=== PATIENT | male | born 1950 | race Caucasian/White ===

== ENCOUNTER 2019-08-19 08:12 | Inpatient (IN) ==
[2019-08-19] MEDS: 0.9 % Sodium Chloride 1,000 ML IVC SCH (08:47)
[2019-08-19] MEDS ORDERED: Nitroglycerin 1,000 MCG/10 ML VIAL IV ONE (10:11)
[2019-08-19] MEDS ORDERED: Heparin 1,000 UNITS/500 mL 500 ML ONE (10:11)
[2019-08-19] MEDS ORDERED: *HR* Heparin 10,000 UNIT/10 ML VIAL ONE (10:11)
[2019-08-19] MEDS ORDERED: Iopamidol 125 ML INFUS..BTL ONE (10:11)
[2019-08-19] MEDS ORDERED: 0.9 % Sodium Chloride 1,000 ML ONE (10:11)
[2019-08-19] MEDS ORDERED: *HR* FentaNYL (PF) 100 MCG/2 ML VIAL ONE (10:18)
[2019-08-19] MEDS ORDERED: *HR* Midazolam HCl 2 MG/2 ML VIAL ONE (10:18)
[2019-08-19] MEDS ORDERED: *HR* Heparin 5,000 UNIT/ML VIAL IVP PRN ×2 (15:33)
[2019-08-19] MEDS ORDERED: *HR* Heparin 5,000 UNIT/ML VIAL IVP ONE (15:33)
[2019-08-19] MEDS ORDERED: Naloxone 0.4 MG/ML INJ IVP PRN (15:35)
[2019-08-19] MEDS ORDERED: *HR* Dextrose 50 % in Water (Syg) 50 ML SYRINGE IVP PRN (15:44)
[2019-08-19] MEDS ORDERED: D5% in Water 1,000 ML IVC PRN (15:44)
[2019-08-19] MEDS ORDERED: Dextrose Gel 15 GM/37.5 ML TUBE PO PRN ×2 (15:44)
[2019-08-19] MEDS ORDERED: Nitroglycerin 0.4 MG TAB.SUBL SL PRN (15:47)
[2019-08-19 16:32] LABS: Basophils % 0.6 %; Eosinophils # 0.1 K/mcL (0.0-0.6); Eosinophils % 1.6 %; Hematocrit 36.1 % (37.5-50.1); Hematocrit 36.9 % (37.5-50.1); Hemoglobin 12.2 g/dL (12.9-16.9); Hemoglobin 12.6 g/dL (12.9-16.9); Immature Granulocytes % 0.1 % (0-4); Lymphocytes # 1.5 K/mcL (0.6-4.6); Lymphocytes % 22.8 %; Mean Corpuscular HGB Conc 33.8 g/dL (31.6-35.5); Mean Corpuscular HGB Conc 34.1 g/dL (31.6-35.5); Mean Corpuscular Hemoglobin 29.3 pg (28.0-33.3); Mean Corpuscular Hemoglobin 30.2 pg (28.0-33.3); Mean Corpuscular Volume 86.8 fL (83.0-100.0); Mean Corpuscular Volume 88.5 fL (83.0-100.0); Mean Platelet Volume 10.6 fL (9.4-12.4); Mean Platelet Volume 10.7 fL (9.4-12.4); Monocytes # 0.6 K/mcL (0.0-1.3); Monocytes % 8.7 %; Neutrophils # 4.5 K/mcL (1.6-8.9); Platelet Count 164 K/mcL (140-400); Platelet Count 168 K/mcL (140-400); Red Blood Count 4.16 M/mcL (4.19-5.50); Red Blood Count 4.17 M/mcL (4.19-5.50); Red Cell Distribution Width 12.9 % (11.5-14.5); Segmented Neutrophils % 66.2 %; White Blood Count 6.6 K/mcL (4.3-11.1); White Blood Count 6.8 K/mcL (4.3-11.1)
[2019-08-19 16:47] LABS: INR 1.1
[2019-08-19] MEDS: Insulin LISPRO 300 UNITS/3 ML VIAL SQ SCH (16:52)
[2019-08-19 16:53] LABS: Alanine Aminotransferase 28 Units/L (7-52); Albumin 3.9 g/dL (3.5-5.7); Albumin/Globulin Ratio 1.8 (1.1-2.2); Alkaline Phosphatase 64 Units/L (34-104); Aspartate Amino Transferase 21 Units/L (13-39); BUN/Creatinine Ratio 16 (6-26); Bilirubin,Total 0.4 mg/dL (0.3-1.0); Blood Urea Nitrogen 20 mg/dL (8-23); Carbon Dioxide 30 mEq/L (23-29); Chloride 107 mEq/L (98-107); Globulin 2.2 g/dL (2.4-3.5); Glucose 336 mg/dL (70-105); Osmolality,Calculated 298 (280-300); Sodium 136 mEq/L (136-145); Total Protein 6.1 g/dL (6.4-8.9); eGFR For African Americans > 60 (> 60); eGFR For Non-African Americans 58 (> 60)
[2019-08-19 16:54] LABS: Troponin I < 0.03 ng/mL (< 0.04)
[2019-08-19] MEDS: Heparin 25,000 UNIT/250 ML D5W 25,000 UNIT/250 ML IV.SOLN IVC SCH (16:54)
[2019-08-19] MEDS: Insulin DETEMIR 100 UNIT/ML X5UNITS SQ SCH (22:00)
[2019-08-20 04:15] LABS: Basophils # 0.1 K/mcL (0.0-0.2); Basophils % 0.7 %; Eosinophils # 0.2 K/mcL (0.0-0.6); Eosinophils % 2.2 %; Hematocrit 36.3 % (37.5-50.1); Hemoglobin 12.3 g/dL (12.9-16.9); Immature Granulocytes % 0.3 % (0-4); Lymphocytes # 2.2 K/mcL (0.6-4.6); Lymphocytes % 23.6 %; Mean Corpuscular HGB Conc 33.9 g/dL (31.6-35.5); Mean Corpuscular Hemoglobin 29.9 pg (28.0-33.3); Mean Corpuscular Volume 88.1 fL (83.0-100.0); Mean Platelet Volume 10.6 fL (9.4-12.4); Monocytes # 0.9 K/mcL (0.0-1.3); Monocytes % 10.2 %; Neutrophils # 5.8 K/mcL (1.6-8.9); Platelet Count 164 K/mcL (140-400); Red Blood Count 4.12 M/mcL (4.19-5.50); Red Cell Distribution Width 12.8 % (11.5-14.5); White Blood Count 9.2 K/mcL (4.3-11.1)
[2019-08-20 04:33] LABS: BUN/Creatinine Ratio 16 (6-26); Blood Urea Nitrogen 19 mg/dL (8-23); Calcium 9.1 mg/dL (8.6-10.3); Carbon Dioxide 25 mEq/L (23-29); Chloride 107 mEq/L (98-107); Glucose 137 mg/dL (70-105); Osmolality,Calculated 290 (280-300); Potassium 3.8 mEq/L (3.5-5.1); Sodium 138 mEq/L (136-145); eGFR For African Americans > 60 (> 60); eGFR For Non-African Americans > 60 (> 60)
[2019-08-20] MEDS: Insulin LISPRO 300 UNITS/3 ML VIAL SQ SCH ×3 (08:20→17:41)
[2019-08-20] MEDS: Aspirin Enteric Coated 81 MG Tablet PO SCH (09:51)
[2019-08-20] MEDS: amLODIPine 5 MG TABLET PO SCH (09:51)
[2019-08-20] MEDS: Metoprolol XL (24 HR) Succ 25 MG TAB.ER.24H PO SCH (09:51)
[2019-08-20 13:47] LABS: Bilirubin,Urine Negative (Negative); Blood,Urine Negative (Negative); Clarity,Urine Clear (Clear); Color,Urine Yellow (Yellow); Glucose,Urine (UA) 250 mg/dL (Normal); Ketones,Urine Negative (Negative); Leukocyte Esterase,Urine Negative (Negative); Nitrite,Urine Negative (Negative); Protein,Urine Negative (Neg-Trace); Specific Gravity,Urine 1.009 (1.010-1.025); Urobilinogen,Urine Normal (Normal)
[2019-08-20] MEDS: Heparin 25,000 UNIT/250 ML D5W 25,000 UNIT/250 ML IV.SOLN IVC SCH (15:05)
[2019-08-20] MEDS: Insulin DETEMIR 100 UNIT/ML X5UNITS SQ SCH (19:39)
[2019-08-21] MEDS: Aspirin Enteric Coated 81 MG Tablet PO SCH (09:03)
[2019-08-21] MEDS: Insulin LISPRO 300 UNITS/3 ML VIAL SQ SCH ×3 (09:03→18:30)
[2019-08-21] MEDS: amLODIPine 5 MG TABLET PO SCH (09:03)
[2019-08-21] MEDS: Metoprolol XL (24 HR) Succ 25 MG TAB.ER.24H PO SCH (09:03)
[2019-08-21] MEDS: Heparin 25,000 UNIT/250 ML D5W 25,000 UNIT/250 ML IV.SOLN IVC SCH (15:20)
[2019-08-21] MEDS: Insulin DETEMIR 100 UNIT/ML X5UNITS SQ SCH (20:54)
[2019-08-22] MEDS: Ondansetron 4 MG/2 ML VIAL IVP PRN (00:33)
[2019-08-22 04:51] LABS: Hematocrit 36.4 % (37.5-50.1); Hemoglobin 12.6 g/dL (12.9-16.9); Mean Corpuscular HGB Conc 34.6 g/dL (31.6-35.5); Mean Corpuscular Hemoglobin 29.6 pg (28.0-33.3); Mean Corpuscular Volume 85.4 fL (83.0-100.0); Mean Platelet Volume 10.7 fL (9.4-12.4); Platelet Count 173 K/mcL (140-400); Red Blood Count 4.26 M/mcL (4.19-5.50); Red Cell Distribution Width 12.9 % (11.5-14.5)
[2019-08-22] MEDS: amLODIPine 5 MG TABLET PO SCH (07:46)
[2019-08-22] MEDS: Aspirin Enteric Coated 81 MG Tablet PO SCH (07:46)
[2019-08-22] MEDS: Insulin DETEMIR 100 UNIT/ML X5UNITS SQ SCH ×2 (07:46→21:28)
[2019-08-22] MEDS: Metoprolol XL (24 HR) Succ 25 MG TAB.ER.24H PO SCH (07:46)
[2019-08-22] MEDS: Insulin LISPRO 300 UNITS/3 ML VIAL SQ SCH ×3 (07:47→16:31)
[2019-08-22] MEDS ORDERED: Chlorhexidine Rinse 15 ML MOUTHWASH MM SCH (09:00)
[2019-08-22 09:53] LABS: INR 1.1; Prothrombin Time 12.3 Seconds (9.4-12.1)
[2019-08-22 10:12] LABS: Estimated Average Glucose 240 mg/dl
[2019-08-22] MEDS: Heparin 25,000 UNIT/250 ML D5W 25,000 UNIT/250 ML IV.SOLN IVC SCH (15:09)
[2019-08-23] MEDS: Aspirin Enteric Coated 81 MG Tablet PO SCH (07:46)
[2019-08-23] MEDS: amLODIPine 5 MG TABLET PO SCH (07:46)
[2019-08-23] MEDS: Insulin DETEMIR 100 UNIT/ML X5UNITS SQ SCH ×2 (07:46→22:00)
[2019-08-23] MEDS: Insulin LISPRO 300 UNITS/3 ML VIAL SQ SCH ×4 (07:47→16:28)
[2019-08-23] MEDS: Metoprolol XL (24 HR) Succ 25 MG TAB.ER.24H PO SCH (07:47)
[2019-08-23] MEDS ORDERED: levoFLOXacin 500 MG TABLET PO SCH (09:00)
[2019-08-23] MEDS: 0.9 % Sodium Chloride 1,000 ML IVC SCH (09:30)
[2019-08-23] MEDS ORDERED: Sennosides/Docusate Sodium TABLET PO PRN (12:28)
[2019-08-23] MEDS ORDERED: Insulin LISPRO 300 UNITS/3 ML VIAL SQ SCH (12:30)
[2019-08-23] MEDS: Heparin 25,000 UNIT/250 ML D5W 25,000 UNIT/250 ML IV.SOLN IVC SCH (16:26)
[2019-08-24] MEDS: Ondansetron 4 MG/2 ML VIAL IVP PRN (04:37)
[2019-08-24] MEDS: Insulin LISPRO 300 UNITS/3 ML VIAL SQ SCH ×6 (08:58→17:51)
[2019-08-24] MEDS: amLODIPine 5 MG TABLET PO SCH (08:59)
[2019-08-24] MEDS: Aspirin Enteric Coated 81 MG Tablet PO SCH (08:59)
[2019-08-24] MEDS: Insulin DETEMIR 100 UNIT/ML X5UNITS SQ SCH ×2 (09:00→21:20)
[2019-08-24] MEDS: Metoprolol XL (24 HR) Succ 25 MG TAB.ER.24H PO SCH (09:00)
[2019-08-24] MEDS: Heparin 25,000 UNIT/250 ML D5W 25,000 UNIT/250 ML IV.SOLN IVC SCH (15:33)
[2019-08-25 02:16] LABS: Mean Corpuscular HGB Conc 33.3 g/dL (31.6-35.5); Mean Corpuscular Hemoglobin 29.6 pg (28.0-33.3); Mean Corpuscular Volume 88.7 fL (83.0-100.0); Mean Platelet Volume 10.6 fL (9.4-12.4); Platelet Count 196 K/mcL (140-400); Red Blood Count 4.06 M/mcL (4.19-5.50); Red Cell Distribution Width 12.8 % (11.5-14.5); White Blood Count 8.9 K/mcL (4.3-11.1)
[2019-08-25 02:39] LABS: Calcium 9.3 mg/dL (8.6-10.3); Potassium 4.4 mEq/L (3.5-5.1)
[2019-08-25] MEDS: Metoprolol XL (24 HR) Succ 25 MG TAB.ER.24H PO SCH (08:27)
[2019-08-25] MEDS: Insulin DETEMIR 100 UNIT/ML X5UNITS SQ SCH ×2 (08:27→20:12)
[2019-08-25] MEDS: amLODIPine 5 MG TABLET PO SCH (08:27)
[2019-08-25] MEDS: Aspirin Enteric Coated 81 MG Tablet PO SCH (08:28)
[2019-08-25] MEDS: Insulin LISPRO 300 UNITS/3 ML VIAL SQ SCH ×6 (08:28→16:14)
[2019-08-25] MEDS: Heparin 25,000 UNIT/250 ML D5W 25,000 UNIT/250 ML IV.SOLN IVC SCH (09:55)
[2019-08-25] MEDS: Chlorhexidine Rinse 15 ML MOUTHWASH MM SCH (20:10)
[2019-08-26 02:16] LABS: Basophils # 0.1 K/mcL (0.0-0.2); Basophils % 0.6 %; Eosinophils # 0.3 K/mcL (0.0-0.6); Eosinophils % 3.7 %; Hematocrit 35.3 % (37.5-50.1); Hemoglobin 11.8 g/dL (12.9-16.9); Immature Granulocytes % 0.1 % (0-4); Lymphocytes % 22.6 %; Mean Corpuscular HGB Conc 33.4 g/dL (31.6-35.5); Mean Corpuscular Hemoglobin 29.2 pg (28.0-33.3); Mean Corpuscular Volume 87.4 fL (83.0-100.0); Mean Platelet Volume 10.9 fL (9.4-12.4); Monocytes % 11.8 %; Neutrophils # 5.3 K/mcL (1.6-8.9); Platelet Count 217 K/mcL (140-400); Red Blood Count 4.04 M/mcL (4.19-5.50); Segmented Neutrophils % 61.2 %; White Blood Count 8.7 K/mcL (4.3-11.1)
[2019-08-26 02:35] LABS: BUN/Creatinine Ratio 17 (6-26); Blood Urea Nitrogen 23 mg/dL (8-23); Calcium 9.4 mg/dL (8.6-10.3); Carbon Dioxide 24 mEq/L (23-29); Chloride 106 mEq/L (98-107); Glucose 140 mg/dL (70-105); Osmolality,Calculated 290 (280-300); Potassium 3.8 mEq/L (3.5-5.1); Sodium 137 mEq/L (136-145); eGFR For African Americans > 60 (> 60); eGFR For Non-African Americans 52 (> 60)
[2019-08-26] MEDS ORDERED: Nitroglycerin 25 MG/250 ML INFUS..BTL IVC ONE (06:29)
[2019-08-26] MEDS ORDERED: NiCARdipine 2.5 MG/10 ML Syringe IVPB ONE (06:29)
[2019-08-26] MEDS: Metoprolol XL (24 HR) Succ 25 MG TAB.ER.24H PO SCH (06:33)
[2019-08-26] MEDS: Chlorhexidine Rinse 15 ML MOUTHWASH MM SCH ×2 (06:33→19:40)
[2019-08-26] MEDS ORDERED: *HR* Midazolam HCl 5 MG/5 ML VIAL IVP ONE (06:36)
[2019-08-26] MEDS ORDERED: *HR* PHENYLEPHRINE 1,000 MCG/10 ML SYRINGE IVP ONE (06:36)
[2019-08-26] MEDS ORDERED: *HR* FentaNYL (PF) 1,000 MCG/20 ML VIAL ONE (06:36)
[2019-08-26] MEDS ORDERED: *HR* Rocuronium Bromide 50 MG/5 ML VIAL ONE (06:36)
[2019-08-26] MEDS ORDERED: Calcium Gluconate 1,000 MG/10 ML VIAL ONE (06:37)
[2019-08-26] MEDS ORDERED: Protamine Sulfate 250 MG/25 ML VIAL IVP ONE (06:37)
[2019-08-26] MEDS ORDERED: Tranexamic Acid 1,000 MG/10 ML VIAL ONE ×2 (06:37→10:39)
[2019-08-26] MEDS ORDERED: Famotidine 20 MG/2 ML VIAL ONE (06:37)
[2019-08-26] MEDS ORDERED: *HR* Etomidate 20 MG/10 ML AMPUL IVP ONE (06:37)
[2019-08-26] MEDS ORDERED: CeFAZolin Syr 2,000MG/20 ML 2,000 MG/20 ML SYRINGE IVPB ONE (07:00)
[2019-08-26] MEDS ORDERED: Verapamil 5 MG/2 ML VIAL ONE (07:10)
[2019-08-26] MEDS ORDERED: Dextrose 50 % in Water (Vial) 30 ML, Sodium Bicarbonate 20 MEQ, Lidocaine 1% 5 ML, Insu... TH ONE ×3 (07:45)
[2019-08-26] MEDS ORDERED: Dextrose 50 % in Water (Vial) 30 ML, Sodium Bicarbonate 20 MEQ, Potassium Chloride 15 M... TH ONE (07:45)
[2019-08-26] MEDS ORDERED: Insulin Human Regular 100 UNIT in 0.9 % Sodium Chloride 100 ML IV PRN (07:45)
[2019-08-26] MEDS ORDERED: Heparin 15,000 UNIT in 0.9 % Sodium Chloride 500 ML IV ONE (07:45)
[2019-08-26] MEDS ORDERED: Norepinephrine 4 MG in 0.9 % Sodium Chloride 250 ML IVC PRN (07:45)
[2019-08-26 08:12] LABS: ABG Base Excess -1 mEq/L (-2 to 3); ABG Chloride 107 mEq/L (98-107); ABG Glucose 167 mg/dL (60-95); ABG HCO3 26 mEq/L (21-27); ABG Ionized Calcium 1.25 mmol/L (1.15-1.35); ABG Oxygen Saturation 100 % (95-98); ABG PCO2 51 mmHg (35-45); ABG PH 7.31 pH Units (7.32-7.45); ABG PO2 317 mmHg (85-104); ABG TCO2 28 mEq/L (20-26)
[2019-08-26 09:41] LABS: ABG Base Excess -7 mEq/L (-2 to 3); ABG Chloride 117 mEq/L (98-107); ABG Glucose 136 mg/dL (60-95); ABG HCO3 18 mEq/L (21-27); ABG Ionized Calcium 0.76 mmol/L (1.15-1.35); ABG Oxygen Saturation 100 % (95-98); ABG PCO2 29 mmHg (35-45); ABG PO2 205 mmHg (85-104); ABG TCO2 18 mEq/L (20-26)
[2019-08-26 09:49] LABS: ABG Base Excess 0 mEq/L (-2 to 3); ABG Chloride 102 mEq/L (98-107); ABG Glucose 218 mg/dL (60-95); ABG HCO3 24 mEq/L (21-27); ABG Ionized Calcium 1.09 mmol/L (1.15-1.35); ABG Oxygen Saturation 100 % (95-98); ABG PCO2 38 mmHg (35-45); ABG PH 7.41 pH Units (7.32-7.45); ABG PO2 453 mmHg (85-104); ABG TCO2 25 mEq/L (20-26)
[2019-08-26] MEDS: Insulin LISPRO 300 UNITS/3 ML VIAL SQ SCH ×6 (10:16→15:21)
[2019-08-26] MEDS: amLODIPine 5 MG TABLET PO SCH (10:17)
[2019-08-26] MEDS: Insulin DETEMIR 100 UNIT/ML X5UNITS SQ SCH (10:17)
[2019-08-26] MEDS: Aspirin Enteric Coated 81 MG Tablet PO SCH (10:17)
[2019-08-26 10:26] LABS: ABG Base Excess 0 mEq/L (-2 to 3); ABG Chloride 102 mEq/L (98-107); ABG Glucose 271 mg/dL (60-95); ABG HCO3 25 mEq/L (21-27); ABG Ionized Calcium 1.05 mmol/L (1.15-1.35); ABG Oxygen Saturation 100 % (95-98); ABG PCO2 37 mmHg (35-45); ABG PH 7.43 pH Units (7.32-7.45); ABG PO2 346 mmHg (85-104); ABG TCO2 26 mEq/L (20-26)
[2019-08-26] MEDS ORDERED: Albumin Human 5% 50.0 GM/1,000 ML VIAL ONE (10:30)
[2019-08-26 10:40] LABS: ABG Base Excess 0 mEq/L (-2 to 3); ABG Chloride 100 mEq/L (98-107); ABG Glucose 224 mg/dL (60-95); ABG HCO3 24 mEq/L (21-27); ABG Ionized Calcium 1.06 mmol/L (1.15-1.35); ABG Oxygen Saturation 100 % (95-98); ABG PCO2 39 mmHg (35-45); ABG PH 7.41 pH Units (7.32-7.45); ABG PO2 244 mmHg (85-104); ABG TCO2 26 mEq/L (20-26)
[2019-08-26 11:13] LABS: ABG Base Excess -1 mEq/L (-2 to 3); ABG Chloride 103 mEq/L (98-107); ABG Glucose 177 mg/dL (60-95); ABG HCO3 23 mEq/L (21-27); ABG Oxygen Saturation 100 % (95-98); ABG PCO2 35 mmHg (35-45); ABG PH 7.43 pH Units (7.32-7.45); ABG PO2 167 mmHg (85-104); ABG TCO2 24 mEq/L (20-26)
[2019-08-26] MEDS ORDERED: *HR* Dextrose 50 % in Water (Syg) 50 ML SYRINGE IVP PRN (12:19)
[2019-08-26] MEDS ORDERED: Potassium Chloride 40 MEQ/200 ML BAG IVPB PRN (12:19)
[2019-08-26] MEDS ORDERED: *HR* Promethazine 25 MG/ML VIAL IVP PRN (12:19)
[2019-08-26] MEDS ORDERED: Insulin Regular, Human 100 UNIT/ML IV PRN (12:19)
[2019-08-26] MEDS ORDERED: Acetaminophen 325 MG TABLET PO PRN (12:19)
[2019-08-26 12:30] LABS: ABG Base Excess -1 mEq/L (-2 to 3); ABG HCO3 24 mEq/L (21-27); ABG Oxygen Saturation 100 % (95-98); ABG PCO2 35 mmHg (35-45); ABG PH 7.44 pH Units (7.32-7.45); ABG PO2 167 mmHg (85-104); ABG TCO2 25 mEq/L (20-26); Blood Gas Modality AF; Blood Gas VT 550 cc
[2019-08-26] MEDS ORDERED: Norepinephrine 4 MG in 0.9 % Sodium Chloride 250 ML IVC SCH (12:30)
[2019-08-26] MEDS ORDERED: Insulin Human Regular 100 UNIT in 0.9 % Sodium Chloride 100 ML IVC SCH (12:30)
[2019-08-26 12:44] LABS: Basophils # 0.1 K/mcL (0.0-0.2); Basophils % 0.5 %; Eosinophils # 0.3 K/mcL (0.0-0.6); Eosinophils % 1.9 %; Hematocrit 28.7 % (37.5-50.1); Immature Granulocytes % 0.5 % (0-4); Lymphocytes # 1.6 K/mcL (0.6-4.6); Lymphocytes % 11.8 %; Mean Corpuscular HGB Conc 34.1 g/dL (31.6-35.5); Mean Corpuscular Hemoglobin 29.7 pg (28.0-33.3); Mean Platelet Volume 10.6 fL (9.4-12.4); Monocytes # 1.7 K/mcL (0.0-1.3); Monocytes % 12.5 %; Neutrophils # 9.7 K/mcL (1.6-8.9); Platelet Count 142 K/mcL (140-400); Red Cell Distribution Width 12.8 % (11.5-14.5); Segmented Neutrophils % 72.8 %
[2019-08-26 12:46] LABS: Hemoglobin 9.8 g/dL (12.9-16.9); White Blood Count 13.3 K/mcL (4.3-11.1)
[2019-08-26 12:59] LABS: BUN/Creatinine Ratio 17 (6-26); Blood Urea Nitrogen 19 mg/dL (8-23); Carbon Dioxide 24 mEq/L (23-29); Chloride 106 mEq/L (98-107); Glucose 155 mg/dL (70-105); Magnesium 2.5 mg/dL (1.6-2.6); Osmolality,Calculated 287 (280-300); Potassium 3.8 mEq/L (3.5-5.1); Sodium 136 mEq/L (136-145); eGFR For African Americans > 60 (> 60); eGFR For Non-African Americans > 60 (> 60)
[2019-08-26] MEDS: niCARdipine 20 MG/200 ML MLS IVC SCH ×3 (12:59→20:42)
[2019-08-26 13:02] LABS: INR 1.3; Prothrombin Time 14.8 Seconds (9.4-12.1)
[2019-08-26] MEDS: 0.9 % Sodium Chloride 1,000 ML IVC SCH (13:03)
[2019-08-26] MEDS: Nitroglycerin 25 MG/250 ML INFUS..BTL IVC SCH ×2 (13:07→13:25)
[2019-08-26] MEDS ORDERED: *HR* Heparin 10,000 UNIT/10 ML VIAL IV ONE (13:32)
[2019-08-26] MEDS ORDERED: Albumin Human 25% 25 GM/100 ML IV.SOLN IV ONE (13:32)
[2019-08-26] MEDS ORDERED: Mannitol 25% vial 12.5 GM/50 ML VIAL IVP ONE (13:32)
[2019-08-26] MEDS ORDERED: Lidocaine 2% Syringe 100 MG/5 ML IV ONE (13:32)
[2019-08-26] MEDS ORDERED: *HR* Phenylephrine 10 MG/ML VIAL IVC ONE (13:32)
[2019-08-26] MEDS ORDERED: *HR* Magnesium Sulfate 2 GM/50 ML PIGGYBACK IVPB ONE (13:32)
[2019-08-26] MEDS: *HR* FentaNYL (PF) 100 MCG/2 ML VIAL IVP PRN ×2 (14:48→20:59)
[2019-08-26 16:03] LABS: ABG Base Excess -2 mEq/L (-2 to 3); ABG HCO3 23 mEq/L (21-27); ABG Oxygen Saturation 99 % (95-98); ABG PCO2 40 mmHg (35-45); ABG PH 7.37 pH Units (7.32-7.45); ABG PO2 118 mmHg (85-104); ABG TCO2 24 mEq/L (20-26); Blood Gas Modality AF; Blood Gas VT 550 cc
[2019-08-26] MEDS: *HR* OxyCODONE/APAP 5/325 TABLET PO PRN ×2 (16:26→21:36)
[2019-08-26 20:17] LABS: ABG Base Excess -2 mEq/L (-2 to 3); ABG HCO3 22 mEq/L (21-27); ABG Oxygen Saturation 98 % (95-98); ABG PCO2 35 mmHg (35-45); ABG PH 7.42 pH Units (7.32-7.45); ABG PO2 107 mmHg (85-104); ABG TCO2 23 mEq/L (20-26); Blood Gas Modality PRVC; Blood Gas VT 550 cc
[2019-08-26 21:23] LABS: ABG Base Excess -2 mEq/L (-2 to 3); ABG HCO3 23 mEq/L (21-27); ABG Oxygen Saturation 98 % (95-98); ABG PCO2 41 mmHg (35-45); ABG PH 7.37 pH Units (7.32-7.45); ABG PO2 101 mmHg (85-104); ABG TCO2 25 mEq/L (20-26); Blood Gas Modality PRVC; Blood Gas VT 550 cc
[2019-08-27 00:06] LABS: ABG Base Excess 0 mEq/L (-2 to 3); ABG HCO3 24 mEq/L (21-27); ABG Oxygen Saturation 98 % (95-98); ABG PCO2 40 mmHg (35-45); ABG PO2 105 mmHg (85-104); ABG TCO2 26 mEq/L (20-26)
[2019-08-27] MEDS: niCARdipine 20 MG/200 ML MLS IVC SCH ×3 (01:12→07:57)
[2019-08-27] MEDS: 0.9 % Sodium Chloride 1,000 ML IVC SCH (03:00)
[2019-08-27] MEDS: *HR* OxyCODONE/APAP 5/325 TABLET PO PRN (04:30)
[2019-08-27 04:39] LABS: Basophils % 0.3 %; Hematocrit 25.8 % (37.5-50.1); Hemoglobin 8.8 g/dL (12.9-16.9); Immature Granulocytes % 0.3 % (0-4); Lymphocytes # 0.6 K/mcL (0.6-4.6); Lymphocytes % 5.5 %; Mean Corpuscular HGB Conc 34.1 g/dL (31.6-35.5); Mean Corpuscular Hemoglobin 29.9 pg (28.0-33.3); Mean Corpuscular Volume 87.8 fL (83.0-100.0); Mean Platelet Volume 10.6 fL (9.4-12.4); Monocytes # 1.7 K/mcL (0.0-1.3); Monocytes % 14.2 %; Neutrophils # 9.3 K/mcL (1.6-8.9); Platelet Count 124 K/mcL (140-400); Red Blood Count 2.94 M/mcL (4.19-5.50); Red Cell Distribution Width 13.4 % (11.5-14.5); Segmented Neutrophils % 79.7 %; White Blood Count 11.7 K/mcL (4.3-11.1)
[2019-08-27 05:01] LABS: BUN/Creatinine Ratio 15 (6-26); Blood Urea Nitrogen 19 mg/dL (8-23); Calcium 8.7 mg/dL (8.6-10.3); Carbon Dioxide 22 mEq/L (23-29); Chloride 108 mEq/L (98-107); Glucose 129 mg/dL (70-105); Osmolality,Calculated 288 (280-300); Potassium 4.3 mEq/L (3.5-5.1); Sodium 137 mEq/L (136-145); eGFR For African Americans > 60 (> 60); eGFR For Non-African Americans 57 (> 60)
[2019-08-27] MEDS: Ondansetron 4 MG/2 ML VIAL IVP PRN (05:31)
[2019-08-27] MEDS: *HR* FentaNYL (PF) 100 MCG/2 ML VIAL IVP PRN (06:15)
[2019-08-27 06:43] LABS: INR 1.2; Prothrombin Time 13.3 Seconds (9.4-12.1)
[2019-08-27] MEDS: Nitroglycerin 25 MG/250 ML INFUS..BTL IVC SCH (07:03)
[2019-08-27] MEDS ORDERED: 0.9 % Sodium Chloride 500 ML ONE (08:08)
[2019-08-27] MEDS: Chlorhexidine Rinse 15 ML MOUTHWASH MM SCH ×2 (08:10→21:13)
[2019-08-27] MEDS: amLODIPine 5 MG TABLET PO SCH (08:10)
[2019-08-27] MEDS: Aspirin Enteric Coated 81 MG Tablet PO SCH (08:10)
[2019-08-27] MEDS: Metoprolol XL (24 HR) Succ 25 MG TAB.ER.24H PO SCH (08:14)
[2019-08-27] MEDS ORDERED: MOM Conc 10 ML UD.LIQ PO PRN ×2 (08:29→09:45)
[2019-08-27] MEDS ORDERED: Pantoprazole 40 MG VIAL IVP SCH (09:00)
[2019-08-27] MEDS ORDERED: D5% in Water 1,000 ML IVC PRN (09:45)
[2019-08-27] MEDS ORDERED: *HR* Dextrose 50 % in Water (Syg) 50 ML SYRINGE IVP PRN (09:45)
[2019-08-27] MEDS ORDERED: *HR* Promethazine 25 MG/ML VIAL IVP PRN (09:45)
[2019-08-27] MEDS ORDERED: *HR* OxyCODONE/APAP 5/325 TABLET PO PRN (09:45)
[2019-08-27] MEDS ORDERED: Acetaminophen 325 MG TABLET PO PRN (09:45)
[2019-08-27] MEDS ORDERED: Naloxone 0.4 MG/ML INJ IVP PRN (09:45)
[2019-08-27] MEDS ORDERED: Dextrose Gel 15 GM/37.5 ML TUBE PO PRN ×2 (09:45)
[2019-08-27] MEDS ORDERED: Nitroglycerin 0.4 MG TAB.SUBL SL PRN (09:45)
[2019-08-27] MEDS: Insulin LISPRO 300 UNITS/3 ML VIAL SQ SCH ×2 (12:01→16:46)
[2019-08-27] MEDS: *HR* Heparin 5,000 UNIT/ML VIAL SQ SCH (16:47)
[2019-08-27] MEDS ORDERED: Insulin DETEMIR 100 UNIT/ML X5UNITS SQ SCH (21:00)
[2019-08-27] MEDS ORDERED: Insulin LISPRO 300 UNITS/3 ML VIAL SQ SCH (21:00)
[2019-08-28 01:14] LABS: Basophils % 0.3 %; Eosinophils % 0.1 %; Hematocrit 25.1 % (37.5-50.1); Hemoglobin 8.3 g/dL (12.9-16.9); Immature Granulocytes % 0.6 % (0-4); Lymphocytes # 0.8 K/mcL (0.6-4.6); Lymphocytes % 6.5 %; Mean Corpuscular HGB Conc 33.1 g/dL (31.6-35.5); Mean Corpuscular Hemoglobin 30.1 pg (28.0-33.3); Mean Corpuscular Volume 90.9 fL (83.0-100.0); Mean Platelet Volume 11.2 fL (9.4-12.4); Monocytes # 1.7 K/mcL (0.0-1.3); Monocytes % 13.7 %; Neutrophils # 9.6 K/mcL (1.6-8.9); Platelet Count 152 K/mcL (140-400); Red Blood Count 2.76 M/mcL (4.19-5.50); Red Cell Distribution Width 13.2 % (11.5-14.5); Segmented Neutrophils % 78.8 %; White Blood Count 12.2 K/mcL (4.3-11.1)
[2019-08-28 01:36] LABS: Calcium 8.7 mg/dL (8.6-10.3); Potassium 4.5 mEq/L (3.5-5.1)
[2019-08-28] MEDS: *HR* Heparin 5,000 UNIT/ML VIAL SQ SCH ×2 (06:29→17:29)
[2019-08-28] MEDS: Pantoprazole 40 MG VIAL IVP SCH (08:34)
[2019-08-28] MEDS: Metoprolol XL (24 HR) Succ 50 MG TAB.ER.24H PO SCH (08:35)
[2019-08-28] MEDS: Insulin LISPRO 300 UNITS/3 ML VIAL SQ SCH ×3 (08:35→16:33)
[2019-08-28] MEDS: Chlorhexidine Rinse 15 ML MOUTHWASH MM SCH ×2 (08:35→20:25)
[2019-08-28] MEDS: Ondansetron 4 MG/2 ML VIAL IVP PRN (08:35)
[2019-08-28] MEDS: Aspirin Enteric Coated 81 MG Tablet PO SCH (08:35)
[2019-08-28] MEDS ORDERED: Metoprolol XL (24 HR) Succ 25 MG TAB.ER.24H PO SCH (09:00)
[2019-08-28] MEDS ORDERED: amLODIPine 5 MG TABLET PO SCH (09:00)
[2019-08-28 09:28] LABS: Hematocrit 24.7 % (37.5-50.1); Hemoglobin 8.2 g/dL (12.9-16.9)
[2019-08-28 09:49] LABS: % Iron Saturation 6 % (20-55); Iron 11 mcg/dL (65-175); Transferrin 131 mg/dL (203-362)
[2019-08-28 10:07] LABS: Ferritin 193 ng/mL (20-250)
[2019-08-28 10:13] LABS: Folate 10.4 ng/mL (3.0-16.0)
[2019-08-28] MEDS: Insulin DETEMIR 100 UNIT/ML X5UNITS SQ SCH ×2 (14:28→20:26)
[2019-08-29 01:32] LABS: Basophils % 0.4 %; Eosinophils # 0.1 K/mcL (0.0-0.6); Eosinophils % 1.3 %; Hematocrit 22.4 % (37.5-50.1); Hemoglobin 7.4 g/dL (12.9-16.9); Immature Granulocytes % 0.6 % (0-4); Lymphocytes % 10.5 %; Mean Corpuscular Hemoglobin 29.6 pg (28.0-33.3); Mean Corpuscular Volume 89.6 fL (83.0-100.0); Mean Platelet Volume 10.6 fL (9.4-12.4); Monocytes % 11.5 %; Neutrophils # 6.9 K/mcL (1.6-8.9); Platelet Count 175 K/mcL (140-400); Red Cell Distribution Width 13.1 % (11.5-14.5); Segmented Neutrophils % 75.7 %; White Blood Count 9.1 K/mcL (4.3-11.1)
[2019-08-29 01:47] LABS: Calcium 8.8 mg/dL (8.6-10.3); Potassium 3.8 mEq/L (3.5-5.1)
[2019-08-29] MEDS: *HR* Heparin 5,000 UNIT/ML VIAL SQ SCH ×2 (05:25→17:13)
[2019-08-29] MEDS ORDERED: Amiodarone Premix 150 MG/100 ML BAG IVPB ONE (06:26)
[2019-08-29] MEDS ORDERED: Amiodarone Premix 360 MG/200 ML BAG IVC ONE (06:30)
[2019-08-29] MEDS: Amiodarone Premix 360 MG/200 ML BAG IVC SCH ×3 (06:57→23:59)
[2019-08-29] MEDS ORDERED: 0.9 % Sodium Chloride 250 ML ONE (08:11)
[2019-08-29] MEDS: Chlorhexidine Rinse 15 ML MOUTHWASH MM SCH ×2 (09:10→21:29)
[2019-08-29] MEDS: Insulin DETEMIR 100 UNIT/ML X5UNITS SQ SCH ×2 (09:11→21:29)
[2019-08-29] MEDS: Pantoprazole 40 MG VIAL IVP SCH (09:11)
[2019-08-29] MEDS: Metoprolol XL (24 HR) Succ 50 MG TAB.ER.24H PO SCH (09:11)
[2019-08-29] MEDS: Aspirin Enteric Coated 81 MG Tablet PO SCH (09:11)
[2019-08-29] MEDS: Insulin LISPRO 300 UNITS/3 ML VIAL SQ SCH ×3 (09:22→17:13)
[2019-08-29] MEDS ORDERED: Lactulose Oral Soln 20 GM/30 ML UDC PO ONE ×2 (11:46→16:41)
[2019-08-29] MEDS: Ondansetron 4 MG/2 ML VIAL IVP PRN (12:00)
[2019-08-29] MEDS ORDERED: Ibuprofen 600 MG TABLET PO PRN (12:01)
[2019-08-30 01:26] LABS: Basophils % 0.4 %; Eosinophils # 0.2 K/mcL (0.0-0.6); Eosinophils % 2.3 %; Hematocrit 26.5 % (37.5-50.1); Hemoglobin 8.7 g/dL (12.9-16.9); Immature Granulocytes % 0.4 % (0-4); Lymphocytes # 0.9 K/mcL (0.6-4.6); Lymphocytes % 11.9 %; Mean Corpuscular HGB Conc 32.8 g/dL (31.6-35.5); Mean Corpuscular Hemoglobin 29.5 pg (28.0-33.3); Mean Corpuscular Volume 89.8 fL (83.0-100.0); Mean Platelet Volume 10.5 fL (9.4-12.4); Monocytes # 0.8 K/mcL (0.0-1.3); Monocytes % 11.1 %; Neutrophils # 5.4 K/mcL (1.6-8.9); Platelet Count 218 K/mcL (140-400); Red Blood Count 2.95 M/mcL (4.19-5.50); Red Cell Distribution Width 13.3 % (11.5-14.5); Segmented Neutrophils % 73.9 %; White Blood Count 7.3 K/mcL (4.3-11.1)
[2019-08-30 01:43] LABS: Calcium 8.8 mg/dL (8.6-10.3); Potassium 3.6 mEq/L (3.5-5.1)
[2019-08-30] MEDS: *HR* Heparin 5,000 UNIT/ML VIAL SQ SCH ×2 (06:17→17:37)
[2019-08-30] MEDS: Pantoprazole 40 MG VIAL IVP SCH (08:17)
[2019-08-30] MEDS: Chlorhexidine Rinse 15 ML MOUTHWASH MM SCH ×2 (08:17→20:23)
[2019-08-30] MEDS: *HR* Amiodarone 200 MG TABLET PO SCH ×2 (08:18→20:23)
[2019-08-30] MEDS: Metoprolol XL (24 HR) Succ 50 MG TAB.ER.24H PO SCH (08:18)
[2019-08-30] MEDS: Aspirin Enteric Coated 81 MG Tablet PO SCH (08:18)
[2019-08-30] MEDS: Insulin LISPRO 300 UNITS/3 ML VIAL SQ SCH ×3 (08:18→17:34)
[2019-08-30] MEDS: Insulin DETEMIR 100 UNIT/ML X5UNITS SQ SCH ×2 (08:25→20:24)
[2019-08-31 01:27] LABS: Basophils # 0.1 K/mcL (0.0-0.2); Basophils % 0.8 %; Eosinophils # 0.5 K/mcL (0.0-0.6); Eosinophils % 7.1 %; Hematocrit 25.1 % (37.5-50.1); Hemoglobin 8.3 g/dL (12.9-16.9); Immature Granulocytes % 0.3 % (0-4); Lymphocytes % 15.3 %; Mean Corpuscular HGB Conc 33.1 g/dL (31.6-35.5); Mean Corpuscular Hemoglobin 29.2 pg (28.0-33.3); Mean Corpuscular Volume 88.4 fL (83.0-100.0); Mean Platelet Volume 10.4 fL (9.4-12.4); Monocytes # 0.9 K/mcL (0.0-1.3); Monocytes % 14.2 %; Neutrophils # 4.1 K/mcL (1.6-8.9); Platelet Count 246 K/mcL (140-400); Red Blood Count 2.84 M/mcL (4.19-5.50); Red Cell Distribution Width 13.6 % (11.5-14.5); Segmented Neutrophils % 62.3 %; White Blood Count 6.6 K/mcL (4.3-11.1)
[2019-08-31 01:53] LABS: Calcium 8.7 mg/dL (8.6-10.3); Potassium 3.2 mEq/L (3.5-5.1)
[2019-08-31] MEDS: *HR* Heparin 5,000 UNIT/ML VIAL SQ SCH ×2 (05:22→17:03)
[2019-08-31] MEDS: Insulin LISPRO 300 UNITS/3 ML VIAL SQ SCH ×3 (08:07→17:03)
[2019-08-31] MEDS: Chlorhexidine Rinse 15 ML MOUTHWASH MM SCH ×2 (08:27→20:53)
[2019-08-31] MEDS: *HR* Amiodarone 200 MG TABLET PO SCH ×2 (08:27→20:52)
[2019-08-31] MEDS: Pantoprazole 40 MG VIAL IVP SCH (08:27)
[2019-08-31] MEDS: Aspirin Enteric Coated 81 MG Tablet PO SCH (08:27)
[2019-08-31] MEDS: Metoprolol XL (24 HR) Succ 50 MG TAB.ER.24H PO SCH (08:27)
[2019-08-31] MEDS ORDERED: Iron Sucrose Complex 400 MG in 0.9 % Sodium Chloride 250 ML IVPB ONE (09:08)
[2019-08-31] MEDS: 0.9 % Sodium Chloride 1,000 ML IVC SCH (10:28)
[2019-08-31] MEDS: Potassium Chloride Elixir 20 MEQ/15 ML UDC PO SCH ×2 (10:28→20:52)
[2019-08-31] MEDS: Famotidine 20 MG TABLET PO SCH (20:52)
[2019-08-31] MEDS ORDERED: Insulin DETEMIR 100 UNIT/ML X5UNITS SQ SCH (21:00)
[2019-09-01 02:47] LABS: Basophils % 0.7 %; Eosinophils # 0.4 K/mcL (0.0-0.6); Eosinophils % 6.4 %; Hematocrit 26.2 % (37.5-50.1); Hemoglobin 8.6 g/dL (12.9-16.9); Immature Granulocytes % 0.5 % (0-4); Lymphocytes # 0.8 K/mcL (0.6-4.6); Lymphocytes % 14.1 %; Mean Corpuscular HGB Conc 32.8 g/dL (31.6-35.5); Mean Corpuscular Hemoglobin 29.7 pg (28.0-33.3); Mean Corpuscular Volume 90.3 fL (83.0-100.0); Mean Platelet Volume 10.3 fL (9.4-12.4); Monocytes # 0.9 K/mcL (0.0-1.3); Monocytes % 15.6 %; Neutrophils # 3.7 K/mcL (1.6-8.9); Platelet Count 264 K/mcL (140-400); Red Cell Distribution Width 13.7 % (11.5-14.5); Segmented Neutrophils % 62.7 %
[2019-09-01 03:32] LABS: Calcium 8.5 mg/dL (8.6-10.3); Potassium 4.4 mEq/L (3.5-5.1)
[2019-09-01] MEDS: *HR* Heparin 5,000 UNIT/ML VIAL SQ SCH ×2 (06:06→17:16)
[2019-09-01] MEDS: *HR* Amiodarone 200 MG TABLET PO SCH ×2 (07:44→20:08)
[2019-09-01] MEDS: Metoprolol XL (24 HR) Succ 50 MG TAB.ER.24H PO SCH (07:44)
[2019-09-01] MEDS: Chlorhexidine Rinse 15 ML MOUTHWASH MM SCH ×2 (07:44→20:08)
[2019-09-01] MEDS: 0.9 % Sodium Chloride 1,000 ML IVC SCH (07:44)
[2019-09-01] MEDS: Aspirin Enteric Coated 81 MG Tablet PO SCH (07:44)
[2019-09-01] MEDS: Famotidine 20 MG TABLET PO SCH (07:44)
[2019-09-01] MEDS: Insulin LISPRO 300 UNITS/3 ML VIAL SQ SCH ×3 (08:55→16:47)
[2019-09-01] MEDS: Insulin DETEMIR 100 UNIT/ML X5UNITS SQ SCH ×2 (08:55→20:09)
[2019-09-01] MEDS ORDERED: Iron Sucrose Complex 400 MG in 0.9 % Sodium Chloride 250 ML IVPB ONE (09:08)
[2019-09-01] MEDS ORDERED: 0.9 % Sodium Chloride 1,000 ML IVC SCH (11:59)
[2019-09-01] MEDS: Ringers Solution, Lactated 1,000 ML IVC SCH (13:50)
[2019-09-02] MEDS: Ringers Solution, Lactated 1,000 ML IVC SCH ×3 (02:09→20:06)
[2019-09-02 03:07] LABS: Basophils # 0.1 K/mcL (0.0-0.2); Basophils % 0.6 %; Eosinophils # 0.5 K/mcL (0.0-0.6); Eosinophils % 5.7 %; Hematocrit 26.7 % (37.5-50.1); Hemoglobin 8.6 g/dL (12.9-16.9); Immature Granulocytes % 0.6 % (0-4); Lymphocytes # 1.2 K/mcL (0.6-4.6); Lymphocytes % 14.5 %; Mean Corpuscular HGB Conc 32.2 g/dL (31.6-35.5); Mean Corpuscular Hemoglobin 29.5 pg (28.0-33.3); Mean Corpuscular Volume 91.4 fL (83.0-100.0); Monocytes % 12.1 %; Neutrophils # 5.7 K/mcL (1.6-8.9); Platelet Count 298 K/mcL (140-400); Red Blood Count 2.92 M/mcL (4.19-5.50); Segmented Neutrophils % 66.5 %; White Blood Count 8.6 K/mcL (4.3-11.1)
[2019-09-02 03:28] LABS: Calcium 8.6 mg/dL (8.6-10.3); Potassium 3.8 mEq/L (3.5-5.1)
[2019-09-02] MEDS: *HR* Heparin 5,000 UNIT/ML VIAL SQ SCH ×2 (06:29→17:51)
[2019-09-02] MEDS: Insulin LISPRO 300 UNITS/3 ML VIAL SQ SCH ×3 (08:21→17:23)
[2019-09-02] MEDS: *HR* Amiodarone 200 MG TABLET PO SCH (08:22)
[2019-09-02] MEDS: Chlorhexidine Rinse 15 ML MOUTHWASH MM SCH ×2 (08:22→20:01)
[2019-09-02] MEDS: Aspirin Enteric Coated 81 MG Tablet PO SCH (08:22)
[2019-09-02] MEDS: Famotidine 20 MG TABLET PO SCH (08:22)
[2019-09-02] MEDS: Metoprolol XL (24 HR) Succ 50 MG TAB.ER.24H PO SCH (08:22)
[2019-09-02] MEDS ORDERED: Insulin DETEMIR 100 UNIT/ML X5UNITS SQ SCH (09:00)
[2019-09-03 00:46] LABS: Albumin 3.1 g/dL (3.5-5.7); Albumin/Globulin Ratio 1.2 (1.1-2.2); Bilirubin,Direct 0.2 mg/dL (0.0-0.2); Bilirubin,Indirect 0.4 mg/dL (0.0-1.2); Bilirubin,Total 0.6 mg/dL (0.3-1.0); Globulin 2.6 g/dL (2.4-3.5); Magnesium 2.1 mg/dL (1.6-2.6); Total Protein 5.7 g/dL (6.4-8.9)
[2019-09-03 00:52] LABS: Potassium 4.8 mEq/L (3.5-5.1)
[2019-09-03 01:00] LABS: Thyroid Stimulating Hormone 0.963 mcIU/mL (0.340-5.600)
[2019-09-03 03:58] LABS: Calcium 8.6 mg/dL (8.6-10.3)
[2019-09-03] MEDS: Ringers Solution, Lactated 1,000 ML IVC SCH (04:02)
[2019-09-03] MEDS: *HR* Heparin 5,000 UNIT/ML VIAL SQ SCH (05:17)
[2019-09-03 07:29] VITALS: BP 131/70
[2019-09-03] MEDS: Aspirin Enteric Coated 81 MG Tablet PO SCH (08:04)
[2019-09-03] MEDS: Famotidine 20 MG TABLET PO SCH (08:04)
[2019-09-03] MEDS: Chlorhexidine Rinse 15 ML MOUTHWASH MM SCH (08:06)
[2019-09-03] MEDS: Insulin LISPRO 300 UNITS/3 ML VIAL SQ SCH (08:06)
[2019-09-03] MEDS ORDERED: Metoprolol XL (24 HR) Succ 25 MG TAB.ER.24H PO SCH (09:00)
[2019-09-03] MEDS ORDERED: *HR* Amiodarone 200 MG TABLET PO SCH (09:00)
== END 2019-09-03 10:04 | disposition home or self-care (01) | DRG 234 ==
LOC: INVDIALAB 08:12 → 3BNU 08:12 → SUATTDRO 14:51 → ICNU 08-26 10:22 → 2NNU 08-27 09:53
PROVIDERS: ADMIT Pharmacist; ATTEND Pharmacist